=== PATIENT | female | born 1970 | race Caucasian/White ===

== ENCOUNTER → 2018-01-11 11:47 | Outpatient (REF) | payer BC, SELFPAY ==
[2018-01-11 20:32] LABS: Iron 30 ug/dL (50-175); Total Iron Binding Capacity 377 ug/dL (250-450); Transferrin Sat 8 % (15-50)
[2018-01-11 20:35] LABS: Absolute Basophil Count 0.02 k/cumm (0.0-0.2); Absolute Eosinophil Count 0.03 k/cumm (0.0-0.7); Absolute Lymphocyte Count 0.62 k/cumm (1.2-3.4); Absolute Monocyte Count 0.43 k/cumm (0.11-0.7); Absolute Neutrophil Count 2.32 k/cumm (1.2-6.7); Basophils % 0.6; Eosinophils % 0.9; HCT 35.8 % (36.0-46.0); HGB 10.9 g/dL (12.0-15.5); Lymphocytes % 18.1; Mean Corp. HGB Concentration 30.4 g/dL (32.0-36.0); Mean Corpuscular Hemoglobin 24.9 pg (27.0-33.0); Mean Corpuscular Volume 81.7 fL (80-95); Mean Platelet Volume 10.6 fL (8.0-11.0); Monocytes % 12.6; Neutrophils % 67.8; Platelet Count 249 x1000/uL (130-400); RBC 4.38 m/cumm (4.00-5.20); RBC Distribution Width 15.6 % (11.7-14.6); White Blood Cell Count 3.42 k/cumm (4.4-10.8)
[2018-01-11 20:59] LABS: Ferritin 7 ng/mL (8-388); Folate 7.8 ng/mL (8.6-20.0); TSH (W/Ref FT4) 0.53 uIU/mL (0.358-3.74); Vitamin B12 349 pg/mL (193-986)
== END ==
LOC: NCHCN 11:47
PROVIDERS: PCP Family Medicine; Visit Provider Family Medicine
DX: D64.9 Anemia, unspecified (principal)
CPT/HCPCS: 82607; 82728; 82746; 83540; 83550; 84443; 85025

== ENCOUNTER 2020-10-31 16:22 | Outpatient (REF) | payer BC, SELFPAY ==
--- NOTE | 2020-10-31 14:05 | PAPFT_PTH ---
PATIENT: Laid Claros LOC: [facility] U#:[id number] AGE/SX: 50/F ROOM: RE10/31/[address]: Cinthia Robertson V : 1970 BED: DIS: 10/31/2020 SPEC #: [id number] RECD: 10/31/20 18:14 STATUS: YOMAIRA DÍAZ #: [id number] SALONI: 10/31/20 14:[address]: Cinthia Robertson V DEPT: [facility] Cytology RECD BY: Tamera Mustafa Tissues: 1 - CX/ENDOCX FOR PAP SMEARS Procedures: PAP THIN PREP/UVM Screening Comments: [id number]
== END 2020-10-31 16:23 | disposition home or self-care (01) ==
LOC: NCHCN 16:22
PROVIDERS: PCP Family Medicine; Visit Provider Family Medicine
DX: Z12.4 Encounter for screening for malignant neoplasm of cervix (principal); Z01.419 Encounter for gynecological examination (general) (routine) without abnormal findings
CPT/HCPCS: 88142; 87624

== ENCOUNTER 2020-11-08 16:12 | Outpatient (REF) | payer BC, SELFPAY ==
[2020-11-08 20:00] LABS: Clarity Sl Cloudy (Clear); Specific Gravity 1.024 (1.005-1.025)
[2020-11-08 20:07] LABS: Bilirubin Color Interference (Negative); Blood Color Interference (Negative); Glucose Color Interference mg/dL (Negative); Ketones Color Interference mg/dL (Negative); Leukocyte Esterase Color Interference (Negative); Nitrite Color Interference (Negative); Urobilinogen Color Interference EU/dL (Up TO 0.2)
[2020-11-08 20:13] LABS: Bacteria Few HPF (Negative); C & S Indicated? Yes; WBC >50 HPF (0-5)
== END 2020-11-08 16:13 | disposition home or self-care (01) ==
LOC: NCHCN 16:12
PROVIDERS: PCP Family Medicine; Visit Provider Nurse Practitioner Family
DX: R30.0 Dysuria (principal)
CPT/HCPCS: 87077; 81003; 81015; 87086; 87186

== ENCOUNTER 2020-11-15 01:26 | Outpatient (CLI) | payer BC, SELFPAY ==
--- NOTE | 2020-11-15 | DI.MAMMO_ITS ---
Exam(s) MAMMO SCREENING EXAM: MAMMO SCREENING CLINICAL HISTORY: SCREENING, PREVENTIVE [facility],Z00.00. TECHNIQUE: Bilateral full field digital CC and MLO mammographic images were obtained with 3D tomosyn thesis and utilizing computer aided detection (CAD). COMPARISON: Prior outside mammograms dating back to 2014, the most recent being February 2018. FINDINGS: The fibroglandular tissue pattern is again noted to be moderately dense which decreases the sensitivi ty of the mammogram for finding hidden underlying lesions. There has been no significant change in the appearance and distribution of the fibroglandular tissue. There are no new obvious spiculated masses nor malignant appearing microcalcification groups. There is no significant architectural distortion nor skin thickening-retraction. IMPRESSION: Dense bilateral fibroglandular tissue. No obvious radiographic evidence of malignancy nor significan t change compared to the outside mammograms listed above. Given the density of this patient's fibroglandular tissue might be prudent to perform screening bilat eral complete breast ultrasound BI-RADS Category 2 - Benign Findings Breast Density - Category C - Heterogeneously dense Breast density Category C or D implies that the patient has dense breast tissue. Dense breast tissue can make it harder to find cancer on a mammogram. Dense breast tissue is also associated with an incr eased risk of breast cancer. This information about the result of the mammogram report was provided to the patient to raise their awareness. Use this report when you speak with the patient about their risks for breast cancer, which includes their family history. At that time, you may recommend additional screening tests (Ultrasoun d or MRI) as these tests may add significant information. A negative radiographic report should not delay biopsy if a dominant or clinically suspicious mass is present. Up to ten percent of cancers are not identified on mammography. A negative report may reinforce clinical impression. Adenosis and dense breasts may obscure an underlying neoplasm. False positive reports average 6 to 10%. Patient will receive a letter notifying them of these results.
== END 2020-11-15 01:46 ==
PROVIDERS: PCP Family Medicine; Visit Provider Family Medicine
DX: Z00.00 Encounter for general adult medical examination without abnormal findings (principal); Z12.31 Encounter for screening mammogram for malignant neoplasm of breast
CPT/HCPCS: 77063; 77067

== ENCOUNTER 2021-03-25 15:11 | Outpatient (REF) | payer BC, SELFPAY ==
[2021-03-27 10:32] LABS: COVID-19 RT-PCR UVMMC Result Negative (Negative)
== END 2021-03-25 15:12 | disposition home or self-care (01) ==
LOC: NCHCN 15:11
PROVIDERS: PCP Family Medicine; Visit Provider Nurse Practitioner Family
DX: Z20.822 Contact with and (suspected) exposure to COVID-19 (principal); J06.9 Acute upper respiratory infection, unspecified
CPT/HCPCS: U0003

== ENCOUNTER 2021-10-06 18:34 | Outpatient (REF) | payer BC, SELFPAY | END 2021-10-06 18:35 | disposition home or self-care (01) | LOC: LBN 18:34 | PROVIDERS: PCP Family Medicine; Visit Provider Physician Assistant | DX: N39.0 Urinary tract infection, site not specified (principal) | CPT/HCPCS: 87086 ==

== ENCOUNTER → 2022-04-13 17:44 | Outpatient (CLI) | payer BC, SELFPAY ==
--- NOTE | 2022-04-13 16:00 | DI.RAD_ITS ---
Exam(s) XR KNEE LT 4V AP,LAT,SADIE,PAT EXAM: XR KNEE LT 4V AP,LAT,SADIE,PAT CLINICAL HISTORY: PAIN IN LEFT KNEE-M25.562. TECHNIQUE: 2D digital imaging was performed. Four views. COMPARISON: No exams were available for comparison FINDINGS: BONES: No acute fracture is present. No bony destructive lesion is seen. JOINTS: The knee is normally aligned. No joint effusion is seen. SOFT TISSUE: Normal. IMPRESSION: Normal radiographs of the left knee. DATA REPOSITORY: RADIATION DOSE DELIVERED:
== END ==
PROVIDERS: PCP Family Medicine; Visit Provider Nurse Practitioner Family
DX: M25.562 Pain in left knee (principal)
CPT/HCPCS: 73564

== ENCOUNTER 2022-07-21 16:05 | Outpatient (CLI) | payer BC, SELFPAY ==
[2022-07-21 15:58] LABS: Abs Immature Grans 0.02 10^3/uL (0.0-0.06); Absolute Basophil Count 0.08 10^3/uL (0.0-0.2); Absolute Eosinophil Count 0.02 10^3/uL (0.0-0.7); Absolute Lymphocyte Count 1.85 10^3/uL (1.2-3.4); Absolute Monocyte Count 0.49 10^3/uL (0.1-0.8); Basophils % 1.2; Eosinophils % 0.3; HCT 35.4 % (36.0-46.0); HGB 11.2 g/dL (11.2-15.7); Immature Grans % 0.3; Lymphocytes % 27.4; MCH 26.7 pg (27.0-33.0); MCHC 31.6 % (32.0-36.0); MCV 84 fL (80-95); Monocytes % 7.2; Neutrophils % 63.6; Platelet Count 287 10^3/uL (130-400); RDW 13.9 % (11.7-14.6); RDW-SD 42.2 fL; WBC 6.76 10^3/uL (4.4-10.8)
[2022-07-21 16:00] LABS: ESR 8 mm/hr (0-30)
[2022-07-21 16:46] LABS: ALT 23 U/L (14-59); AST 19 U/L (15-37); Albumin 4.3 g/dL (3.4-5.0); Alkaline Phosphatase 60 U/L (46-116); Anion Gap 11.1 mmol/L (3-11); BUN 17 mg/dL (7-18); Bilirubin, Total 0.3 mg/dL (0.2-1.0); CO2 23.9 mmol/L (21.0-32.0); CREATININE 0.8 mg/dL (0.55-1.02); Calcium 9.3 mg/dL (8.5-10.1); Chloride 104 mmol/L (98-107); Estimated GFR 88.05 (mL/min/1.73m2); Glucose 90 mg/dL (74-106); Sodium 139 mmol/L (136-145); Total Protein 7.5 g/dL (6.4-8.2)
== END 2022-07-21 16:06 | disposition home or self-care (01) ==
LOC: LBO 16:06
PROVIDERS: PCP Family Medicine; Visit Provider Physician Assistant
DX: Z51.81 Encounter for therapeutic drug level monitoring (principal)
CPT/HCPCS: 36415; 80053; 85652; 85025

== ENCOUNTER → 2023-07-07 11:15 | Outpatient (CLI) | payer BC, SELFPAY ==
--- NOTE | 2023-07-07 11:30 | DI.RAD_ITS ---
Exam(s) XR THORACIC SPINE COMPLETE XR RIBS BI INCLUDE CHEST EXAM: XR RIBS BI INCLUDE CHEST CLINICAL HISTORY: evlaluate pathology M54.6 PAIN IN T SPINE TECHNIQUE: 2D digital imaging was performed. 2 views of the spine. 8 views of the ribs. PA and la teral chest. COMPARISON: CR CHEST 2 VIEWS PA,LAT from 03/29/2015 CR XR THORACIC SPINE COMPLETE from 07/07/2023 FINDINGS: MEDIASTINUM: Normal. HEART: Normal. PULMONARY VASCULATURE: Normal. LUNGS: Mild linear scarring right upper lobe. Lungs are otherwise clear. PLEURAL SPACE: No pleural effusion or pneumothorax. BONE:Normal. BILATERAL RIBS: Normal. Thoracic spine:Minimal degenerative changes.No fracture. IMPRESSION: 1. No acute pulmonary findings. 2. Unremarkable ribs. 3. Thoracic spine shows mild degenerative changes. DATA REPOSITORY: RADIATION DOSE DELIVERED:
== END ==
PROVIDERS: PCP Family Medicine; Visit Provider Nurse Practitioner Family
DX: M54.6 Pain in thoracic spine (principal)
CPT/HCPCS: 71046; 71110; 72072

== ENCOUNTER 2023-10-08 10:26 | Outpatient (REF) | payer BC, SELFPAY ==
--- NOTE | 2023-10-08 08:40 | PAPFT_PTH ---
PATIENT: Ladi Claros LOC: [facility]#:[id number] AGE/SX: 53/F ROOM: RE10/08/[address]: Cinthia Robertson V : 1970 BED: DIS: 10/08/2023 SPEC #: [id number] RECD: 10/08/23 13:26 STATUS: YOMAIRA DÍAZ #: [id number] SALONI: 10/08/23 08:[address]: Cinthia Robertson V DEPT: [facility] Cytology RECD BY: Tamera Mustafa Tissues: 1 - CX/ENDOCX FOR PAP SMEARS Procedures: PAP THIN PREP/UVM Screening HPV DNA PROBE Comments: [id number]
== END 2023-10-08 10:27 | disposition home or self-care (01) ==
LOC: NCHCN 10:26
PROVIDERS: PCP Family Medicine; Visit Provider Family Medicine
DX: Z01.419 Encounter for gynecological examination (general) (routine) without abnormal findings (principal)
CPT/HCPCS: 88142; 87624

== ENCOUNTER 2024-08-18 09:48 | Day surgery (SDC) | payer BC, SELFPAY ==
[2024-08-18 10:20] VITALS: BP 144/87; PULSE 79; RESP 8; TEMP 36.8; O2SAT 99
[2024-08-18] MEDS: Lactated Ringers 1,000 ML 80 ML IV (10:50)
--- NOTE | 2024-08-18 11:15 | W.ANESPRE ---
General Info Date of Service Date Performed: 08/18/24 Height: 5 ft 7 in Weight: 86.6 kg Body Mass Index (BMI): 29.9 Surgical Procedure: Operation Date: 08/18/24 11:35 Proposed Procedure Side Surgeon p Colonoscopy/Gastroscopy Luz Maria Peña MD Meds Allergies and Home Medications Allergies Allergy/AdvReac Type Severity Reaction Status Date / Time gabapentin Allergy Other (See Verified 08/18/24 10:39 Comment) prednisone Allergy Other (See Verified 08/18/24 10:39 Comment) Home Medication ?Medication ?Instructions ?Recorded albuterol sulfate 90 mcg/actuation 2 puff inhalation QID PRN 12/03/14 aerosol inhaler (ProAir HFA) lidocaine 5 % topical patch 1 patch topical DAILY #30 ea 07/07/23 cholecalciferol (vitamin D3) 50 50 mcg PO DAILY 07/24/24 mcg (2,000 unit) capsule fluticasone propionate 230 2 puff inhalation Q12H 07/24/24 mcg-salmeterol 21 mcg/actuation HFA inhaler (Advair HFA) loratadine 5 mg-pseudoephedrine ER 1 tab PO Q12H 07/24/24 120 mg tablet,extended release,12hr (Claritin-D 12 Hour) meloxicam 15 mg tablet 15 mg PO DAILY 07/24/24 omeprazole 40 mg capsule,delayed 40 mg PO DAILY 07/24/24 release bisacodyl 5 mg tablet,delayed 5 mg PO ONCE #4 tabs 07/27/24 release (Dulcolax (bisacodyl)) polyethylene glycol 3350 17 17 g PO ONCE #238 grams 07/27/24 gram/dose oral powder Current Visit Medications: Current Medications Generic Name Dose Route Start Last Admin Trade Name Freq PRN Reason Stop Dose Admin Ringer's Solution 1,000 mls @ 80 mls/hr 08/18/24 06:00 08/18/24 10:50 IV 08/18/24 23:59 80 mls/hr INFUSION RIDDHI Administration IV Miscellaneous Supplies 1 each 08/18/24 06:00 Iv Access IV 08/18/24 23:59 DIRECTED RIDDHI Sodium Chloride 0 ml 08/18/24 06:00 Normal Saline Flush 10 Ml Syr IV 08/18/24 23:59 PRN PRN Sodium Chloride 0 ml 08/18/24 06:00 Normal Saline 10 Ml Vial IJ 08/18/24 23:59 DIRECTED PRN Sterile Water 0 ml 08/18/24 06:00 Water,Injection,Sterile 10 Ml Vial IJ 08/18/24 23:59 DIRECTED PRN [facility] Medical History Medical History Fatigue Cervical radiculopathy Low back pain Dysuria Anemia Dyspnea Gastroesophageal reflux disease without esophagitis Pulmonary sarcoidosis Sciatica Left shoulder pain Asthma Surgical History Surgical History History of History of colonoscopy H/O arthroscopy of shoulder left shoulder Tobacco Smoking/Tobacco Use Status: Never Alcohol Alcohol Intake: current Alcohol intake frequency: a few times a month Alcohol type: wine Substance Use Substance use: Occasionally Substance use type: marijuana Details: Edibles Vital Signs and Lab Results Vital Signs Most Recent Vital Signs in EMR: Most Recent Vital Signs Temp Pulse Resp BP Pulse Ox 36.8 C 79 8 L 144/87 H 99 08/18/24 10:20 08/18/24 10:20 08/18/24 10:20 08/18/24 10:20 08/18/24 10:20 Point of Care Results Point of Care Results: POC- Test(urine) Negative 08/18/24 10:40 Lab Results Blood Type / Crossmatch: No Data to Display Complete Blood Count: No Data to Display Complete Metabolic Panel: No Data to Display Liver Function Panel: No Data to Display Coagulation Panel: No Data to Display Cardiac Panel: No Data to Display Arterial Blood Gas: No Data to Display Venous Blood Gas: No Data to Display Pancreas Panel: No Data to Display Thyroid Panel: No Data to Display Infectious Disease: No Data to Display Blood Cultures: No Data to Display Toxicology Panel: No Data to Display Anesthesia Assessment and Plan Anesthesia History Personal History: No History of Anesthesia Complications Family History: No Family History of Anesthesia Complications Exercise Tolerance Exercise Tolerance: Metabolic Equivalents>4 Pertinent Negatives Pertinent Negatives: No Major Cardiovascular Symptoms or Complaints Cardiac & Pulmonary Exam Cardiac Exam: Normal S1/S2 Heart Sounds Pulmonary Exam: Clear Bilateral Breath Sounds Implantable Cardiac Device Does patient have a Pacemaker or an ICD?: No Airway Exam Known Difficult Airway: No Mallampati Class: 4 Mouth Opening: Narrow (< 3cm) Thyromental Distance: Greater than 3 cm Neck Range of Motion: Full ROM Neck Circumference: Normal Teeth Condition: Normal Dentition ASA Classification ASA Score: ASA 3 Emergency Case?: No NPO Status NPO Status: NPO Clears >2 hours, Solids >8 hours Anesthesia Plan Resuscitation Status: Full Code Anesthesia Technique: General Anesthesia Airway Planned: Natural Airway Monitors Used: Standard Monitors
[2024-08-18 11:56] VITALS: BMI 29.9
--- NOTE | 2024-08-18 12:39 | ENDO_ITS ---
Date of service: 08/18/24 Time of Service: 12:46 Endoscopy Report DATE OF PROCEDURE: 08/18/24 PRE-OP DIAGNOSIS: GERD POST-OP DIAGNOSIS: other (Gastric polyps) PROCEDURE: Upper GI endoscopy with biopsy SURGEON: Luz Maria Peña ANESTHESIA TYPE: General:No Airway ESTIMATED BLOOD LOSS: 0 PATHOLOGY: other (3 level esophageal biopsies and biopsy of the gastric polyp) COMPLICATIONS: None DISPOSITION: same day INDICATIONS: Patient with worsening symptoms of GERD despite antacid therapy FINDINGS: Esophagus, entire stomach, entire duodenum all had normal-appearing mucosa. Th ere were a few polyps in the gastric body, 1 of which was biopsied. The GE junction and the diaphragmatic hiatus were both located at 38 cm from the incisors. No hiatal hernia was appreciated on retroflexion. PROCEDURE DESCRIPTION: After the risks, benefits, and alternatives of the procedure were thoroughly explained, informed consent was obtained. The Patient is brought to the procedure room and time out is performed confirming patient identity, nature of procedure. Patient is connected to monitoring devices including O2 sat, EKG and given supplemental oxygen per anesthesia. After appropriate anesthetic is obtained, patient is placed in the left lateral decubitus position and a bite block is inserted . The endoscope is inserted through the bite block under direct vision and guided under direct vision to the cricopharyngeal muscle. With gentle pressure the endoscope is advanced into the esophagus, then passed down to the third portion of the duodenum. The endoscope is then slowly withdrawn , inspecting all aspects of the mucosa completely. A retroflexion maneuver is performed in the gastric body to view the fundus, cardia and GE junction. Findings and any associated intervention, are noted above. The endoscope was then completely withdrawn from the patient and the procedure terminated. The patient tolerated the procedure well and is transferred back to the Day surgery unit in stable condition after her subsequent colonoscopy.
--- NOTE | 2024-08-18 12:49 | W.COLOREPORT ---
Date of service: 08/18/24 Time of Service: 12:49 Colonoscopy Report Date of procedure: 08/18/24 Pre-op diagnosis general: Screening for colon polyps Post-op diagnosis procedure note: same Procedure: Screening colonoscopy Surgeon: Luz Maria Peña Anesthesia Type: General:No Airway Estimated blood loss (mL): 0 Pathology: none sent Complications: None Disposition: same day Indications: Screening for colon polyps in an average risk patient Findings: Normal mucosa in the entire colon and rectum with no polyps. The bowel prep was adequate. Normal digital rectal exam. Procedure Description: After the risks, benefits, and alternatives of the procedure were thoroughly explained, informed consent was obtained. The Patient is already in the procedure room and time out has been done, prior to the previous upper endoscopy, confirming patient identity, nature of procedure. in the left lateral decubitus position a digital rectal exam is performed with the findings noted . The colonoscope is inserted through the anus and guided under direct vision to the proximal colon as confirmed by presence of the appendiceal orifice and the ileocecal valve. The colonoscope is then slowly withdrawn , inspecting all aspects of the mucosa completely. Findings and any associated intervention, are noted above. The colonoscope was then completely withdrawn from the patient and the procedure terminated. The patient tolerated the procedure well and is transferred back to the Day surgery unit in stable condition.
[2024-08-18 12:51] VITALS: BP 116/70; PULSE 67; RESP 16; TEMP 36.1; O2SAT 100
--- NOTE | 2024-08-18 12:53 | W.PM.DSUDISC ---
Date of service: 08/18/24 Discharge Plan Disposition Patient Disposition: Home Condition: Good Discharge Details Attending Provider: Luz Maria Peña Primary Care Provider: Cinthia Robertson V Home Meds and New Rx's Prescriptions: No Action lidocaine 5 % adhesive patch,medicated 1 patch topical DAILY Qty: 30 0RF Rx Instructions: leave on most painful area for up to 12 hrs fluticasone propion-salmeterol [Advair HFA] 230-21 mcg/actuation HFA aerosol inhaler 2 puff inhalation Q12H cholecalciferol (vitamin D3) 50 mcg (2,000 unit) capsule 50 mcg PO DAILY Claritin-D 12 Hour 5-120 mg tablet extended release 12 hr 1 tab PO Q12H meloxicam 15 mg tablet 15 mg PO DAILY omeprazole 40 mg capsule,delayed release(DR/EC) 40 mg PO DAILY bisacodyl [Dulcolax (bisacodyl)] 5 mg tablet,delayed release (DR/EC) 5 mg PO ONCE Qty: 4 0RF Rx Instructions: Take per colonoscopy instructions provided by ordering providers office polyethylene glycol 3350 17 gram/dose powder 17 g PO ONCE Qty: 238 0RF Rx Instructions: Take per colonoscopy instructions provided by ordering providers office albuterol sulfate [ProAir HFA] 8.5 GM HFA aerosol inhaler 2 puff Inhalation QID PRN Discharge Instructions Additional Instructions: Your upper endoscopy was normal. I did not find a hiatal hernia. I did take biopsies at all levels in your esophagus to look for any microscopic signs of reflux. There were a few polyps in your stomach and I did biopsy 1 of those. Your colonoscopy was normal. I recommend that you have another screening colonoscopy in 10 years. Discharge Orders Discharge Orders: Discharge Order (Routine); Ordered 08/18/24 Ordered By: Luz Maria Peña Discharge Data Discharge Date/Time-TO BE ENTERED AT DEPARTURE: 08/18/24 12:55
[2024-08-18 13:11] VITALS: BP 132/73; PULSE 66; RESP 16; TEMP 36.5; O2SAT 99
[2024-08-18 13:31] VITALS: BP 114/68; PULSE 66; RESP 16; TEMP 36.5; O2SAT 97
--- NOTE | 2024-08-18 13:50 | W.ANESPOSTOP ---
Postoperative Evaluation Date, Time and Location Date Performed: 08/18/24 Time Performed: 12:45 Patient Location: Day Surgery Unit Vital Signs Most Recent Imported Vital Signs: Most Recent Vital Signs Temp Pulse Resp BP Pulse Ox 36.5 C 66 16 114/68 97 08/18/24 13:31 08/18/24 13:31 08/18/24 13:31 08/18/24 13:31 08/18/24 13:31 Pain Score Most Recent Pain Score: Most Recent Pain Score Pain Level 0 08/18/24 13:31 Assessment Mental Status: Awake (Alert & Oriented to Patient Baseline) Airway and Respiratory Function: Patent airway with normal (patient baseline) respiratory exam Cardiovascular Function: Hemodynamically Stable Hydration Status: Adequately Hydrated Nausea & Vomiting: No Nausea or Vomiting Pain: Pt. Denies Any Pain Peripheral Nerve Block: Patient did not receive a nerve block
== END 2024-08-18 12:55 | disposition home or self-care (01) ==
PROVIDERS: PCP Family Medicine; Visit Provider Surgery
PROC: (CPT 43239; principal; 2024-08-18 11:30)
DX: Z12.11 Encounter for screening for malignant neoplasm of colon (principal); K21.9 Gastro-esophageal reflux disease without esophagitis; K31.7 Polyp of stomach and duodenum; K22.89 Other specified disease of esophagus
CPT/HCPCS: 43239; 81025; 88305; J2003; J2250; J2704

== ENCOUNTER 2024-10-13 13:47 | Outpatient (REF) | payer BC, SELFPAY ==
[2024-10-13 15:54] LABS: ALT 22 U/L (14-59); AST 26 U/L (15-37); Albumin 4.1 g/dL (3.4-5.0); Alkaline Phosphatase 91 U/L (46-116); Anion Gap 8.6 mmol/L (3-11); BUN 19 mg/dL (7-18); Bilirubin, Total 0.4 mg/dL (0.2-1.0); CO2 26.4 mmol/L (21.0-32.0); CREATININE 0.8 mg/dL (0.55-1.02); Calcium 9.9 mg/dL (8.5-10.1); Calculated LDL 180 mg/dL (<100); Chloride 104 mmol/L (98-107); Cholesterol 256 mg/dL (<200); Estimated GFR 86.96 (mL/min/1.73m2); Glucose 105 mg/dL (74-106); HDL Cholesterol 56 mg/dL (>or=50); Potassium 4.2 mmol/L (3.5-5.1); Sodium 139 mmol/L (136-145); Total Protein 7.4 g/dL (6.4-8.2); Triglyceride 104 mg/dL (<150)
[2024-10-13 16:04] LABS: Hemoglobin A1C 5.5 % (<5.7)
== END 2024-10-13 13:48 | disposition home or self-care (01) ==
LOC: NCHCN 13:47
PROVIDERS: PCP Family Medicine; Visit Provider Family Medicine
DX: Z00.00 Encounter for general adult medical examination without abnormal findings (principal); Z13.220 Encounter for screening for lipoid disorders; Z13.1 Encounter for screening for diabetes mellitus
CPT/HCPCS: 80053; 80061; 83036

== ENCOUNTER 2024-11-28 18:50 | Outpatient (REF) | payer BC, SELFPAY ==
[2024-11-28 18:16] LABS: ESR 9 mm/hr (0-30)
== END 2024-11-28 18:51 | disposition home or self-care (01) ==
LOC: NCHCN 18:50
PROVIDERS: PCP Family Medicine; Visit Provider Family Medicine
DX: D86.9 Sarcoidosis, unspecified (principal)
CPT/HCPCS: 85652

== ENCOUNTER 2025-01-01 01:08 | Outpatient (CLI) | payer BC, SELFPAY ==
--- NOTE | 2025-01-01 | DI.NM_ITS ---
APPROVED REPORT Exam: Pharmacologic Patient Location: Out-Patient Room/Bed: Stress Nurse: Rosalia Armstrong RN, Kellie Wakefield RN Ordering Provider:NICK CLAIRE, Contact Number: [phone] BMI: 29.75 Baseline Rhythm: Sinus Rhythm Indications: Asthma, MARTE, significant FH of CAD, not on beta johnathan Medical History Medical History: asthma,GERD, pulmonary sarcoidosis, low back pain, anemia, dyspnea, urinary incontinence Cardiac Medications: albuterol sulfate, advair, meloxicam, omeprazole, gabapentin Allergies: gabapentin, prednisone Cardiac Risk Factors: family hx,asthma Previous Cardiac Procedures: none Pretest Chest Pain Characteristics: none Exercise History: Sedentary Physical Disabilities: none Lung Sounds: Clear to auscultation Heart Sounds: Regular Stress Test Details Test: Exercise stress converted to pharmacologic stress due to failure to obtain a diagnostic stress test. Reason for pharmacologic stress test: changed from exercise stress test due to inability to reach target heart rate. Rest Isotope: Tc-99m Sestamibi. Dose: 10.0 Date: 01/01/2025 Injection Time: 0940 Stress Isotope: Tc-99m Sestamibi. Dose: 30.0 Date: 01/01/2025 Injection Time: 1037 HR Resting HR Supine: 64 bpm Max Heart Rate (APMHR): 165 bpm Resting HR Standin bpm Target HR (85% APMHR): 140 bpm Max HR Achieved: 138 bpm % of APMHR: 84 Recovery HR: 87 bpm HR response to stress: Normal HR response to stress BP Resting BP Supine: 136/84 mmHg Resting BP Standin/80 mmHg Max BP: 136/62 mmHg Recovery BP: 110/72 mmHg BP response to stress: Normal blood pressure response to stress. ECG Resting ECG: Sinus Rhythm Ectopy: rare PAC Stress ECG: Sinus Tachycardia ST Change: Nondiagnostic low heart rate Arrhythmia: none Recovery ECG: Sinus Rhythm Recovery ST Change: Nondiagnostic low heart rate Clinical Reason for Termination: pt requested Stress Symptoms: Dyspnea, mod Exercise duration: 5 min39 sec Highest Stage Reached: Stage 2: 2.5 mph at 12% grade. Exercise capacity: 5.22 METs Angina Score: None Roth Treadmill Score: 5.7 Rate Pressure Product: 29044 Stress ECG Conclusion 1. Resting electrocardiogram was normal 2. Patient underwent testing using combination of low-level exercise and pharmacologic stress with regadenoson 3. Patient achieved a workload of 5.22 METS and 84% of maximal predicted heart rate for age 4. The electrocardiographic portion of the test did not demonstrate any myocardial ischemia at a minimally submaximal heart rate 5. See MPI report Roth Treadmill Score is 5.7 which is Low risk. Stress Test Summary STAGE Time (mins) Speed (mph) Grade (%) HR BP SpO2 SYMPTOMS METS Supine 64 136/84 98 Standing 82 112/80 99 1 3 1.7 10 129 4.5 2 6 2.5 12 125 7 1 min post Lexiscan injection 125 112/72 98 mod SOB 3 min post Lexiscan injection 94 136/62 99 6 min post Lexiscan injection 87 110/72 99 Pt transition to lexison protocol per pt request.Pt complained of mod SOB,appeared mod fatigue. All symptoms resolved by end of test. Patient left ambulatory in no apparent distress. MPI Conclusion Myocardial perfusion is normal. There is no ischemia or evidence of prior infarction Ejection fraction is 60% with normal wall motion
[2025-01-01] MEDS: Regadenoson 0.4 MG/5 ML SYR IVP (14:40)
== END 2025-01-01 01:28 ==
LOC: DI 01:08
PROVIDERS: PCP Family Medicine; Visit Provider Family Medicine
DX: J45.909 Unspecified asthma, uncomplicated (principal); R06.09 Other forms of dyspnea
CPT/HCPCS: 78452; 93017; J2785

== ENCOUNTER 2025-04-23 07:52 | Day surgery (SDC) | payer BC, SELFPAY ==
[2025-04-23] VITALS (10 sets, daily range): BP systolic 101–120; BP diastolic 54–77; PULSE 60–72; RESP 15–28; TEMP 35.9–36.5; O2SAT 97–100; BMI 27.8
[2025-04-23] MEDS: Lactated Ringers 1,000 ML 80 ML IV (08:30)
--- NOTE | 2025-04-23 08:30 | W.PM.HP.N ---
Date of service: 04/23/25 Time of Service: 08:30 Assessment and Plan Assessment and plan (1) Stress incontinence: Status: Acute Assessment and plan: She has mixed urinary incontinence, but the stress component of her incontinence is most bothersome at this time. We will move ahead with placement of a midurethral sling. History of Present Illness History of Present Illness Chief Complaint: Stress urinary incontinence Narrative: This is a 54-year-old woman who has a long history of mixed urinary incontinence. At this point in time, the stress incontinence is her most bothersome symptom. She has been able to manage her urgency incontinence symptoms with behavioral modification. She notes that she has done PFPT in the past. Mild improvement at best with the stress incontinence. She notes that it has been several years since her last PFPT session with a physical therapist. She does attempt to try to do exercises when she remembers at home. She currently has leakage with coughing, laughing or sneezing. In fact, she tells me she leaks if she moves wrong. She has no dysuria or gross hematuria. 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 Review of Systems Narrative: No fevers or chills No vision change or dysphasia No diabetes or thyroid dysfunction Pulmonary sarcoidosis, asthma. No hemoptysis No chest pain or palpitations GERD. No hepatitis, ulcers, jaundice No seizures, strokes or peripheral neuropathy No bleeding disorders or anemia No gout PFSH All Active Problems (Updated 04/23/25 @ 08:31 by Diego Quinones MD) Stress incontinence (Acute) Mixed stress and urge urinary incontinence (Acute) Medical History Urinary incontinence Fatigue Cervical radiculopathy Low back pain Dysuria Anemia Dyspnea Gastroesophageal reflux disease without esophagitis Pulmonary sarcoidosis Sciatica Left shoulder pain Asthma Surgical History History of History of colonoscopy (~07/2024) H/O arthroscopy of shoulder left shoulder Social History Smoking/Tobacco Use Status: Never Smoking risk assessment performed?: Yes Alcohol Intake: current Alcohol Intake frequency: a few times a month Alcohol type: wine Drug use: Occasionally Substance use type: marijuana Details: Edibles Housing: house Do you feel safe at home: Yes Do you feel safe in your relationship?: Yes Meds Allergies and Home Medications Allergies Allergy/AdvReac Type Severity Reaction Status Date / Time gabapentin Allergy Other (See Verified 04/23/25 08:10 Comment) prednisone Allergy Other (See Verified 04/23/25 08:10 Comment) Home Medications Medication Instructions Recorded Confirmed Type albuterol sulfate 90 mcg/actuation 2 puff inhalation QID PRN 12/03/14 04/23/25 History aerosol inhaler (ProAir HFA) lidocaine 5 % topical patch 1 patch topical DAILY #30 ea 07/07/23 04/23/25 Rx cholecalciferol (vitamin D3) 50 50 mcg PO DAILY 07/24/24 04/23/25 History mcg (2,000 unit) capsule fluticasone propionate 230 2 puff inhalation Q12H 07/24/24 04/23/25 History mcg-salmeterol 21 mcg/actuation HFA inhaler (Advair HFA) meloxicam 15 mg tablet 15 mg PO DAILY PRN 07/24/24 04/23/25 History omeprazole 40 mg capsule,delayed 40 mg PO DAILY 07/24/24 04/23/25 History release Exam Const General: cooperative Neck Neck: supple Resp Effort & Inspection: normal respiratory effort Auscultation: clear to auscultation bilaterally Cardio Rate: regular rate Rhythm: regular rhythm GI Inspection: normal to inspection Palpation: soft Neuro General: patient alert, patient awake and patient oriented x3 Results Last Vital Signs Temp 36.5 C 04/23/25 07:55 Pulse 67 04/23/25 07:55 Resp 16 04/23/25 07:55 BP 120/68 04/23/25 07:55 Pulse Ox 99 04/23/25 07:55 Time Spent Time spent with Patient: <40 minutes Time was spent: other
--- NOTE | 2025-04-23 08:45 | W.ANESPRE ---
General Info Date of Service Date Performed: 04/23/25 Height: 5 ft 7 in Weight: 80.6 kg Body Mass Index (BMI): 27.8 Surgical Procedure: Operation Date: 04/23/25 08:55 Proposed Procedure Side Surgeon p Miduretheral Sling Diego Quinones MD Meds Allergies and Home Medications Allergies Allergy/AdvReac Type Severity Reaction Status Date / Time gabapentin Allergy Other (See Verified 04/23/25 08:10 Comment) prednisone Allergy Other (See Verified 04/23/25 08:10 Comment) Home Medication Medication Instructions Recorded albuterol sulfate 90 mcg/actuation 2 puff inhalation QID PRN 12/03/14 aerosol inhaler (ProAir HFA) lidocaine 5 % topical patch 1 patch topical DAILY #30 ea 07/07/23 cholecalciferol (vitamin D3) 50 50 mcg PO DAILY 07/24/24 mcg (2,000 unit) capsule fluticasone propionate 230 2 puff inhalation Q12H 07/24/24 mcg-salmeterol 21 mcg/actuation HFA inhaler (Advair HFA) meloxicam 15 mg tablet 15 mg PO DAILY PRN 07/24/24 omeprazole 40 mg capsule,delayed 40 mg PO DAILY 07/24/24 release Current Visit Medications: Current Medications Generic Name Dose Route Start Last Admin Trade Name Freq PRN Reason Stop Dose Admin Ringer's Solution 1,000 mls @ 80 mls/hr 04/23/25 06:00 04/23/25 08:30 IV 05/20/25 23:59 80 mls/hr INFUSION RIDDHI Administration Cefazolin Sodium/Dextrose 2 gm in 50 mls @ 100 mls/hr 04/23/25 06:00 Ancef Duplex IVPB 05/20/25 23:59 PREOP RIDDHI IV Miscellaneous Supplies 1 each 04/23/25 06:00 Iv Access IV 05/20/25 23:59 DIRECTED RIDDHI Sodium Chloride 0 ml 04/23/25 06:00 Normal Saline Flush 10 Ml Syr IV 05/20/25 23:59 PRN PRN Sodium Chloride 0 ml 04/23/25 06:00 Normal Saline 10 Ml Vial IJ 05/20/25 23:59 DIRECTED PRN Sterile Water 0 ml 04/23/25 06:00 Water,Injection,Sterile 10 Ml Vial IJ 05/20/25 23:59 DIRECTED PRN PFSH Active Problems Active Problems: Problem Status Onset Code Stress incontinence Acute N39.3 Mixed stress and urge urinary incontinence Acute N39.46 Medical History Medical History Urinary incontinence Fatigue Cervical radiculopathy Low back pain Dysuria Anemia Dyspnea Gastroesophageal reflux disease without esophagitis Pulmonary sarcoidosis Sciatica Left shoulder pain Asthma Surgical History Surgical History History of History of colonoscopy (~07/2024) H/O arthroscopy of shoulder left shoulder Tobacco Smoking/Tobacco Use Status: Never Passive smoking exposure: Yes Alcohol Alcohol Intake: current Alcohol intake frequency: a few times a month Alcohol type: wine Substance Use Substance use: Occasionally Substance use type: marijuana Details: Edibles Vital Signs and Lab Results Vital Signs Most Recent Vital Signs in EMR: Most Recent Vital Signs Temp Pulse Resp BP Pulse Ox 36.5 C 67 16 120/68 99 04/23/25 07:55 04/23/25 07:55 04/23/25 07:55 04/23/25 07:55 04/23/25 07:55 Imaging and Studies Imaging and Studies Study information below may be from another EMR and interpreted by another provider. Please see original notes in EMR for more complete details. Stress Test Summary: 01/01/25: Clinical Reason for Termination: pt requested Stress Symptoms: Dyspnea, mod Exercise duration: 5 min39 sec Highest Stage Reached: Stage 2: 2.5 mph at 12% grade. Exercise capacity: 5.22 METs Angina Score: None Roth Treadmill Score: 5.7 Rate Pressure Product: [id number] Stress ECG Conclusion 1. Resting electrocardiogram was normal 2. Patient underwent testing using combination of low-level exercise and pharmacologic stress with regadenoson 3. Patient achieved a workload of 5.22 METS and 84% of maximal predicted heart rate for age 4. The electrocardiographic portion of the test did not demonstrate any myocardial ischemia at a minimally submaximal heart rate 5. See MPI report Roth Treadmill Score is 5.7 which is Low risk. Anesthesia Assessment and Plan Anesthesia History Personal History: No History of Anesthesia Complications Family History: No Family History of Anesthesia Complications Exercise Tolerance Exercise Tolerance: Metabolic Equivalents>4 Pertinent Negatives Pertinent Negatives: No Major Cardiovascular Symptoms or Complaints Cardiac & Pulmonary Exam Cardiac Exam: Normal S1/S2 Heart Sounds Pulmonary Exam: Wheezing Present (RLL, cleared after cough, used inhalers this morning) Implantable Cardiac Device Does patient have a Pacemaker or an ICD?: No Airway Exam Known Difficult Airway: No Mallampati Class: 4 Mouth Opening: Narrow (< 3cm) Thyromental Distance: Greater than 3 cm Neck Range of Motion: Full ROM Neck Circumference: Normal Teeth Condition: Normal Dentition ASA Classification ASA Score: ASA 3 Emergency Case?: No NPO Status NPO Status: NPO Clears >2 hours, Solids >8 hours Anesthesia Plan Resuscitation Status: Full Code Anesthesia Technique: Spinal Anesthesia Airway Planned: Natural Airway Monitors Used: Standard Monitors and SedLine Preoperative Comments:: Primary plan SAB, patient's pulmonary doctor has left [facility] [place] and has not seen follow up in some time. Would like to avoid intubation if possible.
[2025-04-23] MEDS: ceFAZolin 2 GM/50 ML BAG IVPB (09:33)
[2025-04-23] MEDS: Lidocaine 1% Pres-Free W/EPI 1/200,000 10 ML VIAL (09:58)
[2025-04-23] MEDS: Lidocaine 2% Jelly 6 ML SYR (10:02)
--- NOTE | 2025-04-23 10:24 | W.PM.DSUDISC ---
Date of service: 04/23/25 Discharge Plan Disposition Patient Disposition: Home Condition: Stable Discharge Details Reason For Visit: midurethral sling Attending Provider: Diego Quinones Primary Care Provider: Cinthia Robertson V Home Meds and New Rx's Prescriptions: New tramadol 50 mg tablet 50 mg PO Q6H PRN (Reason: pain) Qty: 20 0RF Rx Instructions: may take with tylenol and/or NSAIDs No Action lidocaine 5 % adhesive patch,medicated 1 patch topical DAILY Qty: 30 0RF Rx Instructions: leave on most painful area for up to 12 hrs fluticasone propion-salmeterol [Advair HFA] 230-21 mcg/actuation HFA aerosol inhaler 2 puff inhalation Q12H cholecalciferol (vitamin D3) 50 mcg (2,000 unit) capsule 50 mcg PO DAILY meloxicam 15 mg tablet 15 mg PO DAILY PRN omeprazole 40 mg capsule,delayed release(DR/EC) 40 mg PO DAILY albuterol sulfate [ProAir HFA] 8.5 GM HFA aerosol inhaler 2 puff Inhalation QID PRN Discharge Instructions Additional Instructions: No lifting over 10 pounds until followup visit Nothing in vagina for @ 4 weeks Followup visit 2 to 4 weeks Stand Alone Forms: Portal Information Activity:: no lifting over 10 pounds Shower/Bathe:: 24 hours Diet:: As Tolerated Discharge Orders Discharge Orders: Discharge Order (Routine); Ordered 04/23/25 Ordered By: Diego Quinones DS: Diagnosis Discharge Diagnosis (1) Stress incontinence: Status: Acute
--- NOTE | 2025-04-23 10:28 | ROE_ITS ---
Operative Note Operative Note PRE-OP DIAGNOSIS: Stress urinary incontinence POST-OP DIAGNOSIS: same PROCEDURE: Midurethral sling SURGEON: Diego Quinones ANESTHESIA TYPE: Local By Surgeon and Spinal Refer to Anesthesia Record ESTIMATED BLOOD LOSS: 50 PATHOLOGY: none sent COMPLICATIONS: None Patient was transported to: PACU Patient's condition: stable Implants: Altis sling Indications: This is a 54-year-old woman who has has a history of mixed urinary incontinence. The urgency incontinence symptoms have stabilized with pelvic floor physical therapy and behavioral modification. Her stress urinary incontinence symptoms are still quite bothersome. After discussing treatment options, she presents for placement of a mid urethral sling. Findings: Normal anatomy Procedure Description: The patient was given IV antibiotics and brought to the operating room on 04/23/2025. After successful induction of spinal anesthesia, she was placed in the exaggerated lithotomy position. Her genitalia was prepped and draped. 2% Xylocaine jelly was instilled into the urethra. A 16 Armenian Rice catheter was passed through the urethra into the bladder. The catheter balloon was inflated with 10 cc of sterile water. We are then able to palpate the catheter balloon along the anterior vaginal wall and identified the mid urethra. A midline incision was made through the anterior vaginal mucosa overlying the mid urethra. A plane was then developed on each side of the incision out to the obturator foramen. We utilized the Altis mid urethral sling and passed the insertion needles through the plane of dissection out to the level of the obturator foramen. The obturator fascia was pierced and the needle was retracted leaving the sling mechanism in place. The needles were passed bilaterally and the tensioning suture was adjusted with a pair of Metzenbaum scissors positioned between the sling and the urethra. The tensioning suture was then cut. The urethral catheter was removed and cystoscopy performed. We found no evidence of bladder injury when inspecting the bladder neck and bladder using a 70 degree lens. The cystoscope was then withdrawn. The vaginal incision was closed with [id number] 2-0 Vicryl sutures. The patient tolerated this procedure well with no complications. Date of Procedure: 04/23/25
[2025-04-23] MEDS: Phenazopyridine 200 MG TAB PO (11:16)
--- NOTE | 2025-04-23 11:41 | W.ANESPOSTOP ---
Postoperative Evaluation Date, Time and Location Date Performed: 04/23/25 Time Performed: 11:08 Patient Location: Day Surgery Unit Vital Signs Most Recent Imported Vital Signs: Most Recent Vital Signs Temp Pulse Resp BP Pulse Ox 35.9 C L 64 16 114/77 100 04/23/25 11:22 04/23/25 11:22 04/23/25 11:22 04/23/25 11:22 04/23/25 11:22 Pain Score Most Recent Pain Score: Most Recent Pain Score Pain Level 0 04/23/25 11:22 Assessment Mental Status: Awake (Alert & Oriented to Patient Baseline) Airway and Respiratory Function: Patent airway with normal (patient baseline) respiratory exam Cardiovascular Function: Hemodynamically Stable Hydration Status: Adequately Hydrated Nausea & Vomiting: No Nausea or Vomiting Pain: Pt. Denies Any Pain Peripheral Nerve Block: Patient did not receive a nerve block
== END 2025-04-23 12:09 | disposition home or self-care (01) ==
PROVIDERS: PCP Family Medicine; Visit Provider Urology
PROC: (CPT 57288; principal; 2025-04-23 08:45)
DX: N39.46 Mixed incontinence (principal); D86.0 Sarcoidosis of lung; J45.909 Unspecified asthma, uncomplicated; K21.9 Gastro-esophageal reflux disease without esophagitis; D64.9 Anemia, unspecified; M54.12 Radiculopathy, cervical region
CPT/HCPCS: 57288; C1781; J0690; J1100; J2003; J2004; J2250; J2371; J2401; J2405; J2704